=== PATIENT | female | born 1975 | race Two or more races ===

== ENCOUNTER 2023-01-25 13:45 | Emergency (ER) | payer OTHER ==
[~2023-01-25] VITALS: Ht 160 cm; Wt 86.0 kg
[2023-01-25 13:51] VITALS: BP 113/71
[2023-01-25] MEDS ORDERED: methylPREDNISolone sod succ 125mg/2ml vial IM ONE (15:10)
[2023-01-25] MEDS ORDERED: diphenhydrAMINE 50 mg/ml inj IM ONE (15:10)
[2023-01-25] MEDS ORDERED: METH4TAB81 PO (15:41)
== END 2023-01-25 15:50 | disposition home or self-care (01) ==
LOC: ER 13:45
DX: L50.9 Urticaria, unspecified (principal); Z88.0 Allergy status to penicillin; Z79.899 Other long term (current) drug therapy
CPT/HCPCS: 96372; 99283; J2930